=== PATIENT | female | born 1945 | race Caucasian/White ===

== ENCOUNTER 2021-03-26 16:06 | Inpatient (IN) ==
[2021-03-26] MEDS ORDERED: Ipratropium/Albuterol Neb 3 ML IH ONE (16:21)
[2021-03-26] MEDS ORDERED: cefTRIAXone 1,000 MG in Water for inj. (sterile) 10 ML IVP ONE (16:32)
[2021-03-26] MEDS ORDERED: Azithromycin 500 MG in 0.9 % Sodium Chloride 250 ML IVPB ONE (16:32)
[2021-03-26 17:03] LABS: Basophils % 0.4 %; Eosinophils # 0.3 K/mcL (0.0-0.6); Eosinophils % 3.8 %; Hematocrit 36.1 % (35.3-44.9); Hemoglobin 11.3 g/dL (11.5-15.4); Immature Granulocytes % 0.5 % (0-4); Lymphocytes # 0.9 K/mcL (0.6-4.6); Lymphocytes % 10.8 %; Mean Corpuscular HGB Conc 31.3 g/dL (31.6-35.5); Mean Corpuscular Volume 102.3 fL (83.0-100.0); Mean Platelet Volume 10.2 fL (9.4-12.4); Monocytes # 0.8 K/mcL (0.0-1.3); Monocytes % 9.5 %; Neutrophils # 6.4 K/mcL (1.6-8.9); Platelet Count 172 K/mcL (140-400); Red Blood Count 3.53 M/mcL (3.82-4.97); Red Cell Distribution Width 12.4 % (11.5-14.5); White Blood Count 8.5 K/mcL (4.3-11.1)
[2021-03-26 17:11] LABS: VBG HCO3 27 mEq/L (21-27); VBG PCO2 47 mmHg (41-51); VBG PH 7.37 pH Units (7.32-7.42); VBG PO2 197 mmHg (25-50)
[2021-03-26 17:15] LABS: INR 1.3; Prothrombin Time 14.8 Seconds (9.4-12.1)
[2021-03-26 17:25] LABS: Albumin 4.1 g/dL (3.5-5.7); Albumin/Globulin Ratio 1.1 (1.1-2.2); Bilirubin,Direct 0.1 mg/dL (0.0-0.2); Bilirubin,Indirect 0.3 mg/dL (0.0-1.0); Bilirubin,Total 0.4 mg/dL (0.3-1.0); Globulin 3.7 g/dL (2.4-3.5); Magnesium 1.9 mg/dL (1.6-2.6); Phosphorous 5.2 mg/dL (2.7-4.5); Total Protein 7.8 g/dL (6.4-8.9)
[2021-03-26 17:27] LABS: Calcium 9.4 mg/dL (8.6-10.3); Potassium 4.4 mEq/L (3.5-5.1)
[2021-03-26 17:31] LABS: Troponin I 0.13 ng/mL (< 0.04)
[2021-03-26] MEDS ORDERED: Aspirin 81 MG TAB.CHEW PO STA (17:42)
[2021-03-26 17:57] LABS: Adenovirus Not Detected (Not Detect); Coronavirus 229E Not Detected (Not Detect); Coronavirus HKU1 Not Detected (Not Detect); Coronavirus NL63 Not Detected (Not Detect); Coronavirus OC43 Not Detected (Not Detect); Human Metapneumovirus Not Detected (Not Detect); SARS-CoV-2 Not Detected (Not Detect)
[2021-03-26 17:58] LABS: Bordetella Pertussis Not Detected (Not Detect); Chlamydophila pneumoniae Not Detected (Not Detect); Human Rhinovirus/Enterovirus DETECTED (Not Detect); Influenza A Subtype 2009 H1 Not Detected (Not Detect); Influenza B Not Detected (Not Detect); Mycoplasma pneumoniae Not Detected (Not Detect); Parainfluenza Virus 1 Not Detected (Not Detect); Parainfluenza Virus 2 Not Detected (Not Detect); Parainfluenza Virus 3 Not Detected (Not Detect); Parainfluenza Virus 4 Not Detected (Not Detect); Respiratory Syncytial Virus Not Detected (Not Detect)
[2021-03-26 18:44] LABS: Bilirubin,Urine Negative (Negative); Blood,Urine Negative (Negative); Clarity,Urine Clear (Clear); Color,Urine Colorless (Yellow); Glucose,Urine (UA) Normal (Normal); Ketones,Urine Negative (Negative); Leukocyte Esterase,Urine Negative (Negative); Nitrite,Urine Negative (Negative); PH,Urine 6.5 pH Units (5.0-8.0); Protein,Urine Trace mg/dL (Neg-Trace); Urobilinogen,Urine Normal (Normal)
[2021-03-26] MEDS ORDERED: Naloxone 0.4 MG/ML INJ IVP PRN (19:09)
[2021-03-26] MEDS ORDERED: Melatonin 3 MG TABLET PO PRN (19:09)
[2021-03-26] MEDS ORDERED: Metoprolol XL (24 HR) Succ 25 MG TAB.ER.24H PO SCH (19:15)
[2021-03-26] MEDS ORDERED: *HR* Dextrose 50 % in Water (Syg) 50 ML SYRINGE IVP PRN (20:24)
[2021-03-26] MEDS ORDERED: D5% in Water 1,000 ML IVC PRN (20:24)
[2021-03-26] MEDS ORDERED: Dextrose Gel 15 GM/37.5 ML TUBE PO PRN ×2 (20:24)
[2021-03-26] MEDS: Insulin LISPRO 300 UNITS/3 ML VIAL SUBQ SCH (21:37)
[2021-03-26] MEDS: Insulin DETEMIR 100 UNIT/ML X5UNITS SUBQ SCH (21:48)
[2021-03-26] MEDS: Apixaban 5 MG TABLET PO SCH (21:49)
[2021-03-26] MEDS: MethylPREDNISolone 40 MG/ML VIAL IVP SCH (21:49)
[2021-03-26] MEDS ORDERED: MethylPREDNISolone 40 MG/ML VIAL IVP SCH (22:00)
[2021-03-26] MEDS: Ipratropium/Albuterol Neb 3 ML IH SCH (23:21)
[2021-03-27 01:52] LABS: Hemoglobin 11.1 g/dL (11.5-15.4); Mean Corpuscular HGB Conc 31.7 g/dL (31.6-35.5); Mean Corpuscular Hemoglobin 32.4 pg (28.0-33.3); Mean Platelet Volume 10.8 fL (9.4-12.4); Platelet Count 168 K/mcL (140-400); Red Blood Count 3.43 M/mcL (3.82-4.97); Red Cell Distribution Width 12.5 % (11.5-14.5); White Blood Count 8.3 K/mcL (4.3-11.1)
[2021-03-27] MEDS ORDERED: Perflutren Lipid Microsphere 1.3 ML in 0.9 % Sodium Chloride 8.7 ML IVP PRN (02:00)
[2021-03-27 02:01] LABS: Calcium 9.1 mg/dL (8.6-10.3); Potassium 4.6 mEq/L (3.5-5.1)
[2021-03-27] MEDS ORDERED: 0.9 % Sodium Chloride 1,000 ML IVC SCH (02:15)
[2021-03-27] MEDS: MethylPREDNISolone 40 MG/ML VIAL IVP SCH ×3 (03:09→20:31)
[2021-03-27] MEDS: Ipratropium/Albuterol Neb 3 ML IH SCH ×4 (03:38→20:46)
[2021-03-27] MEDS ORDERED: *HR* Heparin 5,000 UNIT/ML VIAL SQ SCH (06:00)
[2021-03-27] MEDS: Insulin LISPRO 300 UNITS/3 ML VIAL SUBQ SCH ×5 (09:02→20:35)
[2021-03-27] MEDS: Apixaban 5 MG TABLET PO SCH ×2 (09:03→20:31)
[2021-03-27] MEDS: Aspirin 81 MG TAB.CHEW PO SCH (09:03)
[2021-03-27] MEDS: carvediloL 6.25 MG TABLET PO SCH ×2 (09:03→17:07)
[2021-03-27] MEDS: Insulin DETEMIR 100 UNIT/ML X5UNITS SUBQ SCH ×2 (09:05→20:31)
[2021-03-27] MEDS ORDERED: cefTRIAXone 1,000 MG in Water for inj. (sterile) 10 ML IVP SCH (16:00)
[2021-03-27] MEDS ORDERED: Azithromycin 500 MG in 0.9 % Sodium Chloride 250 ML IVPB SCH (16:00)
[2021-03-28 03:19] LABS: Calcium 8.9 mg/dL (8.6-10.3); Magnesium 2.1 mg/dL (1.6-2.6); Phosphorous 3.6 mg/dL (2.7-4.5); Potassium 4.9 mEq/L (3.5-5.1)
[2021-03-28] MEDS: MethylPREDNISolone 40 MG/ML VIAL IVP SCH ×2 (03:28→11:30)
[2021-03-28] MEDS: Ipratropium/Albuterol Neb 3 ML IH SCH ×3 (04:03→16:08)
[2021-03-28] MEDS: Aspirin 81 MG TAB.CHEW PO SCH (07:50)
[2021-03-28] MEDS: carvediloL 6.25 MG TABLET PO SCH ×2 (07:50→16:25)
[2021-03-28] MEDS: Apixaban 5 MG TABLET PO SCH (07:51)
[2021-03-28] MEDS: Insulin LISPRO 300 UNITS/3 ML VIAL SUBQ SCH ×2 (07:52→11:31)
[2021-03-28] MEDS ORDERED: Cholecalciferol (D-3) 1,000 UNIT (25MCG) TABLET PO SCH (09:00)
[2021-03-28] MEDS ORDERED: levoFLOXacin 750 MG TABLET PO SCH ×2 (09:00)
[2021-03-28] MEDS ORDERED: Ascorbic Acid 500 MG TABLET PO SCH (09:00)
[2021-03-28] MEDS ORDERED: Cyanocobalamin (B-12) 1,000 MCG TABLET PO SCH (09:00)
[2021-03-28] MEDS: Insulin DETEMIR 100 UNIT/ML X5UNITS SUBQ SCH (10:10)
[2021-03-28 14:21] VITALS: PULSE 60
[2021-03-28] MEDS ORDERED: Insulin LISPRO 300 UNITS/3 ML VIAL SUBQ SCH ×2 (16:30→21:00)
[2021-03-28 18:39] VITALS: BP 167/81; TEMP 97.5; O2SAT 94
== END 2021-03-28 20:13 | disposition home health service (06) | DRG 193 ==
LOC: EMEROOARM 16:06 → 3ANU 16:06 → SUATTDRO 03-27 05:07
PROVIDERS: ADMIT Internal Medicine; ATTEND Internal Medicine